=== PATIENT | female | born 1985 ===

== ENCOUNTER 2016-12-10 08:37 | Outpatient (CLI) | payer MEDICAID ==
--- NOTE | 2016-12-10 14:02 | Ultrasound Report ---
BILATERAL DIGITAL DIAGNOSTIC MAMMOGRAM WITH CAD AND TARGETED LEFT BREAST ULTRASOUND: HISTORY: Palpable lump in the left breast at the 10:30 position. FINDINGS: The breast parenchyma is heterogeneously dense with no evidence of focal mass or architectural distortion. No findings are seen at the site of the palpable abnormality. No suspicious calcifications are present. Sonographic evaluation of the area of palpable abnormality demonstrates no evidence of a cystic or solid mass. IMPRESSION: No suspicious findings. BI-RADS CATEGORY: 1 = Negative ACR BI-RADS MAMMOGRAPHIC CODES: 0 = Needs additional imaging evaluation; 1 = Negative; 2 = Benign; 3 = Probably benign; 4 = Suspicious; 5 = Malignant; 6 = Known biopsy-proven malignancy COMMENT: 1. Dense breast tissue, i.e., adenosis, fibrocystic changes, etc., may obscure an underlying neoplasm. 2. Approximately 10% of cancers are not detected with mammography. 3. A negative mammography report should not delay biopsy if a clinically suspicious mass is present. RECOMMENDATION: Routine screening schedule, ACS guidelines.
== END 2016-12-10 08:38 | disposition home or self-care (01) ==
LOC: SPVWC 08:37
PROVIDERS: ATTEND Advanced Practice Midwife
DX: N60.02 Solitary cyst of left breast (principal)
CPT/HCPCS: 76642; G0204; 77066